=== PATIENT | female | born 1985 | race Caucasian/White ===

== ENCOUNTER 2019-04-13 14:50 | Inpatient (IN) ==
[2019-04-13 15:31] LABS: URINE SOURCE VOIDED
[2019-04-13 15:40] LABS: BILIRUBIN URINE NEGATIVE (NEGATIVE); BLOOD URINE TRACE (NEGATIVE); CLARITY SL. CLOUDY (CLEAR); COLOR YELLOW; GLUCOSE URINE NEGATIVE (NEGATIVE); KETONE URINE TRACE mg/dL (NEGATIVE); LEUKOCYTES URINE 1+ (NEGATIVE); NITRITE URINE NEGATIVE (NEGATIVE); PH URINE 6.5; PROTEIN URINE TRACE mg/dL (NEGATIVE); UROBILINOGEN URINE 1 mg/dL
[2019-04-13] MEDS ORDERED: BENADRYL IV ONE (15:43)
[2019-04-13] MEDS ORDERED: TYLENOL PO ONE (15:44)
[2019-04-13] MEDS: LR 1,000 ML IV SCH ×2 (16:18→19:55)
[2019-04-13 16:25] LABS: UR AMPHETAMINES QUAL PRESUMPTIVE POSITIVE (NONE DETECT); UR BARBITUATES QUAL NONE DETECTED (NONE DETECT); UR BENZODIAZEPIN QUAL NONE DETECTED (NONE DETECT); UR CANNABINOIDS QUAL NONE DETECTED (NONE DETECT); UR COCAINE QUAL NONE DETECTED (NONE DETECT); UR METHADONE QUAL NONE DETECTED (NONE DETECT); UR METHAMPHETAMINE QUAL PRESUMPTIVE POSITIVE (NONE DETECT); UR OPIATES QUAL NONE DETECTED (NONE DETECT); UR OXYCODONE QUAL NONE DETECTED (NONE DETECT); UR PCP QUAL NONE DETECTED (NONE DETECT); UR PROPOXYPHENE QUAL NONE DETECTED (NONE DETECT); UR TCA QUAL NONE DETECTED (NONE DETECT)
[2019-04-13 16:55] LABS: PROTEIN CREAT RATIO 0.3; UR CREAT RANDOM 165.4 mg/dL (11-20); UR PROT RANDOM 44.6 mg/dL
[2019-04-13 16:56] LABS: BASO# 0.01 X1000 (0.0-0.2); BASO% 0.1 % (0.0-0.8); EOS# 0.17 X1000 (0.0-0.7); EOS% 1.3 % (0.0-10.0); HEMOGLOBIN 9.6 g/dL (12.0-16.0); IMM GRAN# 0.05 X1000 (0.0-0.04); IMM GRAN% 0.4 % (0.0-0.5); LYMPH# 1.99 X1000 (1.2-3.4); LYMPH% 15.4 % (20.5-51.1); MCH 26.7 PG (27-31); MCV 83.6 FL (81-99); MONO# 0.92 X1000 (0.11-0.59); MONO% 7.1 % (1.7-9.3); NEUT# 9.82 X1000 (1.4-6.5); NEUT% 75.7 % (42.2-75.2); PLT 180 X1000 (130-400); RBC 3.59 XMIL (4.2-5.4); RDW 16.1 % (11.5-14.5); WBC 12.96 X1000 (4.8-10.8)
[2019-04-13 17:11] LABS: AGAP 12; ALBUMIN 2.6 g/dL (3.5-5.0); ALKALINE PHOSPHATASE 134 U/L (32-104); BUN 6 mg/dL (8-22); CALCIUM 7.4 mg/dL (8.8-10.2); CHLORIDE 103 mmol/L (98-107); COSMO 275; CREATININE 0.7 mg/dL (0.5-0.9); ESTIMATED GFR > 60; GLUCOSE 88 mg/dL (70-104); GOT 14 U/L (10-30); GPT 9 U/L (10-36); POTASSIUM 3.2 mmol/L (3.5-5.1); SODIUM 139 mmol/L (136-145); TCO2 24 mmol/L (25-35)
[2019-04-13] MEDS ORDERED: TRANDATE PO ONE (17:50)
[2019-04-13] MEDS ORDERED: LABETALOL IV ONE ×2 (19:07→19:21)
[2019-04-13] MEDS ORDERED: REGLAN PO ONE (19:30)
[2019-04-13] MEDS ORDERED: KEFZOL 1 GM/D5W 1 GM/50 ML IVPB IV PRN (19:30)
[2019-04-13] MEDS ORDERED: PEPCID PO ONE (19:30)
--- NOTE | 2019-04-13 19:39 | OB/GYN PROGRESS NOTE ---
Progress Note OB - . OB Progress Note: Vital Signs - 24 hr 04/13/19 15:10 Temperature 96.7 F L Pulse Rate 95 H Respiratory Rate 20 Blood Pressure 157/95 O2 Sat by Pulse Oximetry 98 Laboratory Results - last 24 hr 04/13/19 04/13/19 04/13/19 15:00 15:00 15:00 WBC RBC Hgb Hct MCV MCH MCHC RDW Std Deviation Plt Count MPV Immature Gran % (Auto) Neut % (Auto) Lymph % (Auto) [place] % (Auto) Eos % (Auto) Baso % (Auto) Immature Gran # (Auto) Neut # (Auto) Lymph # (Auto) [place] # (Auto) Eos # (Auto) Baso # (Auto) Sodium Potassium Chloride Carbon Dioxide Anion Gap BUN Creatinine Estimated GFR/1.73 m2 BUN/Creatinine Ratio Glucose Calculated Osmolality Uric Acid Calcium Total Bilirubin AST ALT Alkaline Phosphatase Total Protein Albumin Globulin Albumin/Globulin Ratio Urine Source VOIDED Urine Color YELLOW Urine Clarity SL. CLOUDY A Urine pH 6.5 Ur Specific [place] 1.010 Urine Protein TRACE A Urine Ketones TRACE Urine Blood TRACE Urine Nitrite NEGATIVE Urine Bilirubin NEGATIVE Urine Urobilinogen 1 Urine WBC 1+ A Ur Random Creatinine 165.4 H U Random Total Protein 44.6 Protein/Creatinin Ratio 0.3 Urine Glucose NEGATIVE Urine Opiates Screen NONE DETECTED Ur Oxycodone Screen NONE DETECTED Urine Methadone Screen NONE DETECTED U Propoxyphene Qual NONE DETECTED Ur Barbituates Screen NONE DETECTED Ur Tricyclics Screen NONE DETECTED Ur Phencyclidine Scrn NONE DETECTED Ur Amphetamines Screen PRESUMPTIVE POSITIVE A U Methamphetamines Scrn PRESUMPTIVE POSITIVE A U Benzodiazepines Scrn NONE DETECTED Urine Cocaine Screen NONE DETECTED U Cannabinoids Screen NONE DETECTED 04/13/19 04/13/19 04/13/19 16:30 16:30 16:30 WBC 12.96 H RBC 3.59 L Hgb 9.6 L Hct 30.0 L MCV 83.6 MCH 26.7 L MCHC 32.0 L RDW Std Deviation 16.1 H Plt Count 180 MPV 13.0 H Immature Gran % (Auto) 0.4 Neut % (Auto) 75.7 H Lymph % (Auto) 15.4 L [place] % (Auto) 7.1 Eos % (Auto) 1.3 Baso % (Auto) 0.1 Immature Gran # (Auto) 0.05 H Neut # (Auto) 9.82 H Lymph # (Auto) 1.99 [place] # (Auto) 0.92 H Eos # (Auto) 0.17 Baso # (Auto) 0.01 Sodium 139 Potassium 3.2 L Chloride 103 Carbon Dioxide 24 L Anion Gap 12 BUN 6 L Creatinine 0.7 Estimated GFR/1.73 m2 > 60 BUN/Creatinine Ratio 9 Glucose 88 Calculated Osmolality 275 Uric Acid 7.1 H Calcium 7.4 L Total Bilirubin 0.20 AST 14 ALT 9 L Alkaline Phosphatase 134 H Total Protein 5.0 L Albumin 2.6 L Globulin 2.0 Albumin/Globulin Ratio 1.0 Urine Source Urine Color Urine Clarity Urine pH Ur Specific [place] Urine Protein Urine Ketones Urine Blood Urine Nitrite Urine Bilirubin Urine Urobilinogen Urine WBC Ur Random Creatinine U Random Total Protein Protein/Creatinin Ratio Urine Glucose Urine Opiates Screen Ur Oxycodone Screen Urine Methadone Screen U Propoxyphene Qual Ur Barbituates Screen Ur Tricyclics Screen Ur Phencyclidine Scrn Ur Amphetamines Screen U Methamphetamines Scrn U Benzodiazepines Scrn Urine Cocaine Screen U Cannabinoids Screen Patient had improvement in her NORMAN pain and BP until about 40-50 minutes ago. She used the bathroom and since that time her BP have been 160s-190s. She has been given IV labetalol x 2, 20mg and 40mg. her NORMAN is worse. Discussed the R/B/A of a repeat including the risks of infection, bleeding, damage to anything in her abdomen, placenta accreta and possible hysterectomy. She confirms understanding and agrees to proceed. She also wants a tubal ligation. O. BP 167/89. FHM: 145, mod savannah, no decels [place]: None. A/P 33yo at 36/5 with worsening GHTN, likely Severe preeclampsia superimposed on GHTN. Will add MgSO4 for seizure prophylaxis at delivery if BP still high. Will repeat UDS as well.
[2019-04-13] MEDS ORDERED: BICITRA ONE (19:55)
[2019-04-13] MEDS ORDERED: ZOFRAN ONE (20:28)
[2019-04-13] MEDS ORDERED: PITOCIN ONE ×2 (20:28→21:00)
[2019-04-13] MEDS ORDERED: DURAMORPH ONE (20:28)
[2019-04-13 20:37] LABS: UR AMPHETAMINES QUAL PRESUMPTIVE POSITIVE (NONE DETECT); UR BARBITUATES QUAL NONE DETECTED (NONE DETECT); UR BENZODIAZEPIN QUAL NONE DETECTED (NONE DETECT); UR CANNABINOIDS QUAL NONE DETECTED (NONE DETECT); UR COCAINE QUAL NONE DETECTED (NONE DETECT); UR METHADONE QUAL NONE DETECTED (NONE DETECT); UR METHAMPHETAMINE QUAL NONE DETECTED (NONE DETECT); UR OPIATES QUAL NONE DETECTED (NONE DETECT); UR OXYCODONE QUAL NONE DETECTED (NONE DETECT); UR PCP QUAL NONE DETECTED (NONE DETECT); UR PROPOXYPHENE QUAL NONE DETECTED (NONE DETECT); UR TCA QUAL NONE DETECTED (NONE DETECT)
[2019-04-13] MEDS ORDERED: EPHEDRINE ONE (20:49)
[2019-04-13] MEDS ORDERED: DECADRON ONE (21:00)
[2019-04-13] MEDS ORDERED: BOOSTRIX VACCINE IM ONE (22:00)
[2019-04-13] MEDS ORDERED: ZOFRAN IV PRN ×2 (22:00)
[2019-04-13] MEDS ORDERED: DEMEROL IM PRN (22:00)
[2019-04-13] MEDS ORDERED: AMBIEN PO PRN (22:00)
[2019-04-13] MEDS ORDERED: NARCAN INJ PRN (22:00)
[2019-04-13] MEDS ORDERED: PITOCIN 20 UNITS/NS 20 UNITS/1,000 ML IV.SOLN IV ONE (22:00)
[2019-04-13] MEDS ORDERED: DULCOLAX PR PRN (22:00)
[2019-04-13] MEDS ORDERED: MYLICON PO PRN (22:00)
[2019-04-13] MEDS ORDERED: PHENERGAN IM PRN (22:00)
[2019-04-13] MEDS ORDERED: DEMEROL PO PRN ×2 (22:00)
[2019-04-13] MEDS ORDERED: ATARAX PO PRN (22:00)
[2019-04-13] MEDS ORDERED: PITOCIN IM PRN (22:00)
[2019-04-13] MEDS ORDERED: M-M-R II VACCINE SUBQ ONE (22:00)
[2019-04-13] MEDS ORDERED: BENADRYL IV PRN (22:00)
[2019-04-13] MEDS ORDERED: ZOFRAN ODT PO PRN (22:00)
[2019-04-13] MEDS ORDERED: HYDROXYZINE IM PRN (22:00)
[2019-04-13] MEDS ORDERED: MAGNESIUM SULFATE 4 GM/S.W.I. 4 GM/100 ML IVPB IV ONE (22:23)
[2019-04-13] MEDS ORDERED: MAGNESIUM SULFATE 40 GM/S.W.I. 40 GM/1,000 ML IV.SOLN IV SCH (22:30)
[2019-04-13] MEDS: PITOCIN 10 UNITS/NS 1,000 ML IV SCH (22:30)
[2019-04-13] MEDS ORDERED: BENADRYL ONE (22:37)
--- NOTE | 2019-04-14 00:18 | HISTORY AND PHYSICAL ---
CHIEF COMPLAINT: Headache and elevated pressures at home. The patient states she saw spots. HISTORY OF PRESENT ILLNESS: A 33-year-old, she is a -2-0-4. She is at 36 weeks and 5 days by 30 week ultrasound. She is here today, sent from the clinic, after having had elevated blood pressures at home and headache with vision changes. The patient states this morning she had elevated pressures and went to the clinic. She was told to take an extra dose of labetalol and come into Labor and Delivery for monitoring. She originally had a headache, which she says was at least a 7/10 pain and had seen some spots in her vision this morning. After arriving here, she was given some fluids and Tylenol. She now states her headache is much better. She does not see any spots or have any other vision changes, and her pain is 4/10. In addition, she reports that she has been taking Claritin-D for several weeks, not just Claritin, and was unaware that Claritin- D had Sudafed, which can elevate her blood pressure. The patient denies any illicit drug use. She has a history of preeclampsia in her previous pregnancies. She had 2 early deliveries because of worsening preeclampsia and history of 4 C-sections. PAST MEDICAL HISTORY: The patient denies, although she has a history of hypertension with each . She states that she has frequent medical visits in between pregnancies with normal blood pressure. PAST SURGICAL HISTORY: Notable for x4. She also had a laparoscopic cholecystectomy. OBSTETRICAL HISTORY: -2-0-4. 1. at term, 5 pounds 15 ounces male. 2. at term, 7 pounds 6 ounces male. 3. at 32 weeks, 6 pounds 8 ounces. 4. at 28 weeks, 5 pounds 5 ounces. 5. Current. GYNECOLOGIC HISTORY: Denies STDs. Last Pap in 2018. Denies a history of abnormal Paps. MEDICATIONS: She takes labetalol 100 b.i.d. along with Phenergan p.r.n. nausea, and Claritin-D. ALLERGIES: To Wellbutrin with tongue swelling and throat swelling. SOCIAL HISTORY: She smokes under half pack per day. Denies illicit drug use or alcohol use. Of note, she did have a UDS positive for meth and amphetamines today, although we did discuss the causes of false positives with that as well. REVIEW OF SYSTEMS: Positive for headache. She no longer has nausea, spots in her vision. Denies vision changes otherwise. Denies troubles breathing, right upper quadrant pain. PHYSICAL EXAM: VITAL SIGNS: Temperature of 96.7 degrees, pulse is 95, respirations 20, blood pressure 161/92 is her last blood pressure. Weight is 215. GENERAL: No apparent distress. Alert and orient x3. HEENT: Head is atraumatic, normocephalic. CARDIOVASCULAR: She is has a regular rate and rhythm. PULMONARY: Clear to auscultation bilaterally. ABDOMEN: Soft, gravid, obese. EXTREMITIES: Trace lower extremity edema. DTR 2+. No clonus. OTHER: heart rate tracings are 140 baseline and moderate variability. Positive accelerations. No decelerations. No contractions on TOCO. LABORATORY: She has a BUN of 6, creatinine 0.7, uric acid 7.1, AST of 14, ALT of 9. Urine shows trace protein. Hemoglobin of 9.6, platelet count of 180,000. ASSESSMENT AND PLAN: She is a 33-year-old, -2-0-4 at 36 and 5/7 weeks with elevated blood pressure. 1. The patient has gestational hypertension and history of preeclampsia x4. She has improvement of her headache and no longer has vision changes. We will adjust her dose of labetalol to bring her pressures down into the low mild range, and not have her take any more Claritin-D in this . We will likely keep the patient overnight to watch her pressures. If she has any severe features or headache is not resolved with Tylenol, then may do her early. She did have a course of steroids early in this . 2. x4. Plan for repeat in addition to a tubal, the consent for which she signed today. 3. Tobacco use. The patient is encouraged not to smoke. 4. Patient states she has chronic nausea and throws up a lot, and she claims to have lost 15 pounds in his . The weights from previous visits show weight of 189 pounds on 03/02, 208 pounds on 04/06, and weight today is 215, so that is not consistent with chronic vomiting. The patient may continue to use Phenergan for nausea, however, hyperemesis is not a concern. 5. Desire for permanent sterilization. This will be performed when she has her . 6. Preeclampsia versus severe gestational hypertension. We will order a spot urine protein/creatinine ratio and possibly a 24-hour urine. cc: DO ROMEO Vu
[2019-04-14] MEDS ORDERED: MAGNESIUM SULFATE 2 GM/S.W.I. 2 GM/50 ML IVPB IV ONE (01:21)
[2019-04-14] MEDS ORDERED: LR 500 ML IV SCH (01:30)
[2019-04-14] MEDS: TORADOL IV SCH ×3 (03:11→16:18)
[2019-04-14 04:33] LABS: BANDS 3 % (0-1); BASO# 0.02 X1000 (0.0-0.2); BASO% 0.1 % (0.0-0.8); EOS# 0.01 X1000 (0.0-0.7); EOS% 0.1 % (0.0-10.0); HEMATOCRIT 30.8 % (37.0-47.0); HEMOGLOBIN 9.7 g/dL (12.0-16.0); IMM GRAN# 0.07 X1000 (0.0-0.04); IMM GRAN% 0.4 % (0.0-0.5); LYMPH# 1.17 X1000 (1.2-3.4); LYMPH% 5.9 % (20.5-51.1); LYMPHS 5 % (21-51); MCH 26.2 PG (27-31); MCHC 31.5 g/dL (33-37); MCV 83.2 FL (81-99); MONO 1 % (1-9); MONO# 0.63 X1000 (0.11-0.59); MONO% 3.2 % (1.7-9.3); MPV 12.9 FL (7.4-10.4); NEUT# 17.82 X1000 (1.4-6.5); NEUT% 90.3 % (42.2-75.2); PLT 188 X1000 (130-400); RDW 15.8 % (11.5-14.5); SEGS 91 % (42-75); WBC 19.72 X1000 (4.8-10.8)
[2019-04-14 04:34] LABS: ANISOCYTOSIS 1+; HYPOCHROM 1+; MICROCYTOSIS 2+; TARGET CELLS 1+
[2019-04-14] MEDS ORDERED: MAGNESIUM SULFATE 1 GM/D5W 1 GM/100 ML IVPB IV ONE ×2 (05:09→11:15)
[2019-04-14] MEDS: LR 1,000 ML IV SCH (06:15)
--- NOTE | 2019-04-14 07:18 | OPERATIVE NOTE ---
PROCEDURE DATE: 04/13/2019 PREOPERATIVE DIAGNOSIS: 1. G5, P2-2-0-4 at 36 weeks and 5 days has severe gestational hypertension, suspected preeclampsia, history of preeclampsia, and hypertension in all 4 previous pregnancies with 2 being delivered for this reason. The patient also had positive UDS for meth and amphetamine. 2. Undesired fertility. POSTOPERATIVE DIAGNOSES: 1. G5, P2-2-0-4 at 36 weeks and 5 days has severe gestational hypertension, suspected preeclampsia, history of preeclampsia, and hypertension in all 4 previous pregnancies with 2 being delivered for this reason. The patient also had positive UDS for meth and amphetamine. 2. Undesired fertility. PROCEDURE: A repeat low transverse section with bilateral tubal ligation. SURGEON: Allen Betancourt DO [employer]ED [employer] SORTER: None. ANESTHESIA: Spinal. FINDINGS: The patient had dense scarring at the fascia layer and rectus and linea alba. Normal- looking uterus, tubes, and ovaries. Male . Cephalic presentation, and weight of 7 pounds 4 ounces. Apgars of 3, 5 and 7 at 1, 5 and 10 minutes respectively. COMPLICATIONS: Scarring. SPECIMEN: Bilateral tubes. ESTIMATED BLOOD LOSS: 600. URINE OUTPUT: 80 mL. FLUIDS: Lactated Ringer's per Anesthesia. DESCRIPTION OF PROCEDURE: The patient was taken to the operating room where the spinal anesthesia was found to be adequate. She was prepped and draped in the normal sterile fashion, placed in the supine position with leftward tilt. A Pfannenstiel incision was made over the previous scar, and followed down to the fascia. Fascia was nicked in the midline and Morales scissors were used to extend it laterally. The fascia was elevated, and was not attached to the rectus. A thin layer of connective tissue was overlying the rectus muscles. This was entered and dissected carefully with the Metzenbaum scissors. A portion superiorly was entered, and the omentum and uterus were visualized beneath. This was then dissected inferiorly toward the bladder. The rectus muscles were bluntly. The Nathan retractor was placed, and the bladder flap was created with Metzenbaum scissors. The incision was made in the uterus in the thin portion where the previous incisions had been made. The 's head was elevated through the incision, and the was delivered without incident. The was initially screaming on the mother's abdomen. the cord was stripped then clamped and cut. The infant's mouth was suctioned and the baby was then handed off to the waiting nursing team. The placenta was removed. The uterus was cleared of all clots and debris. Hysterotomy was closed with 0 Vicryl in a running locked fashion. An imbrication layer was placed over it. A tubal was then performed on the right side in the modified Reubens technique. The segment of tube removed about 4 cm. The same was performed on the left side. The uterus was then replaced, and retractor removed. Hysterotomy was seen to be hemostatic. The rectus was reapproximated with 3-0 chromic. The fascia was reapproximated with PDS. Subcutaneous layer was reapproximated with 3-0 Monocryl, and skin was reapproximated with 4- 0 Biosin with Dermabond placed over it. The patient tolerated the procedure well. All lap, sponge, and needle counts were correct x2. She was taken to recovery room in stable condition. Magnesium was started at the end of the procedure. cc: DO ROMEO Vu
[2019-04-14] MEDS: PERCOCET-5 PO PRN (09:25)
[2019-04-14] MEDS: MYLICON PO SCH ×4 (09:25→21:16)
--- NOTE | 2019-04-14 11:31 | OB/GYN PROGRESS NOTE ---
Progress Note OB - . OB Progress Note: Vital Signs - 24 hr 04/13/19 15:10 04/13/19 19:02 04/13/19 19:07 Temperature 96.7 F L 97.6 F Pulse Rate 95 H 86 82 Respiratory Rate 20 20 20 Blood Pressure 157/95 185/103 178/103 Blood Pressure [Left Arm] O2 Sat by Pulse Oximetry 98 99 98 04/13/19 19:18 04/13/19 19:29 04/13/19 19:33 Temperature Pulse Rate 77 Respiratory Rate 20 Blood Pressure 195/104 175/110 167/89 Blood Pressure [Left Arm] O2 Sat by Pulse Oximetry 99 04/13/19 19:37 04/13/19 19:42 04/13/19 20:00 Temperature Pulse Rate Respiratory Rate Blood Pressure 171/87 156/79 162/98 Blood Pressure [Left Arm] O2 Sat by Pulse Oximetry 04/13/19 20:02 04/13/19 20:06 04/13/19 20:12 Temperature Pulse Rate Respiratory Rate Blood Pressure 177/108 186/107 187/94 Blood Pressure [Left Arm] O2 Sat by Pulse Oximetry 04/13/19 21:50 04/13/19 22:00 04/13/19 22:10 Temperature 97.1 F L Pulse Rate 60 58 L 57 L Respiratory Rate 20 20 20 Blood Pressure 140/74 Blood Pressure [Left Arm] 140/74 134/84 139/69 O2 Sat by Pulse Oximetry 97 98 99 04/13/19 22:20 04/13/19 22:30 04/13/19 22:40 Temperature Pulse Rate 57 L 77 62 Respiratory Rate 18 18 18 Blood Pressure Blood Pressure [Left Arm] 159/80 149/76 131/99 O2 Sat by Pulse Oximetry 100 95 95 04/13/19 22:50 04/13/19 23:00 04/13/19 23:10 Temperature Pulse Rate 53 L 66 65 Respiratory Rate 18 20 18 Blood Pressure 152/77 149/80 156/74 Blood Pressure [Left Arm] 152/77 O2 Sat by Pulse Oximetry 99 98 100 04/13/19 23:30 04/14/19 00:50 04/14/19 02:18 Temperature Pulse Rate 61 75 74 Respiratory Rate 18 18 18 Blood Pressure 140/77 138/87 146/87 Blood Pressure [Left Arm] O2 Sat by Pulse Oximetry 98 96 95 04/14/19 03:18 04/14/19 04:18 04/14/19 05:18 Temperature Pulse Rate 69 68 63 Respiratory Rate 16 18 18 Blood Pressure 140/87 141/82 137/84 Blood Pressure [Left Arm] O2 Sat by Pulse Oximetry 94 L 97 96 04/14/19 07:00 04/14/19 08:00 04/14/19 09:00 Temperature 96.9 F L 97.0 F L Pulse Rate 63 67 72 Respiratory Rate 16 16 18 Blood Pressure 139/83 Blood Pressure [Left Arm] O2 Sat by Pulse Oximetry 100 96 97 04/14/19 09:55 Temperature Pulse Rate 66 Respiratory Rate 18 Blood Pressure 134/77 Blood Pressure [Left Arm] O2 Sat by Pulse Oximetry 96 Laboratory Results - last 24 hr 04/13/19 04/13/19 04/13/19 15:00 15:00 15:00 WBC RBC Hgb Hct MCV MCH MCHC RDW Std Deviation Plt Count MPV Immature Gran % (Auto) Neut % (Auto) Lymph % (Auto) [place] % (Auto) Eos % (Auto) Baso % (Auto) Immature Gran # (Auto) Neut # (Auto) Lymph # (Auto) [place] # (Auto) Eos # (Auto) Baso # (Auto) Segmented Neutrophils Band Neutrophils Lymphocytes Monocytes Hypochromia Anisocytosis Microcytosis Target Cells Sodium Potassium Chloride Carbon Dioxide Anion Gap BUN Creatinine Estimated GFR/1.73 m2 BUN/Creatinine Ratio Glucose Calculated Osmolality Uric Acid Calcium Magnesium Total Bilirubin AST ALT Alkaline Phosphatase Total Protein Albumin Globulin Albumin/Globulin Ratio Urine Source VOIDED Urine Color YELLOW Urine Clarity SL. CLOUDY A Urine pH 6.5 Ur Specific [place] 1.010 Urine Protein TRACE A Urine Ketones TRACE Urine Blood TRACE Urine Nitrite NEGATIVE Urine Bilirubin NEGATIVE Urine Urobilinogen 1 Urine WBC 1+ A Ur Random Creatinine 165.4 H U Random Total Protein 44.6 Protein/Creatinin Ratio 0.3 Urine Glucose NEGATIVE Urine Opiates Screen NONE DETECTED Ur Oxycodone Screen NONE DETECTED Urine Methadone Screen NONE DETECTED U Propoxyphene Qual NONE DETECTED Ur Barbituates Screen NONE DETECTED Ur Tricyclics Screen NONE DETECTED Ur Phencyclidine Scrn NONE DETECTED Ur Amphetamines Screen PRESUMPTIVE POSITIVE A U Methamphetamines Scrn PRESUMPTIVE POSITIVE A U Benzodiazepines Scrn NONE DETECTED Urine Cocaine Screen NONE DETECTED U Cannabinoids Screen NONE DETECTED 04/13/19 04/13/19 04/13/19 16:30 16:30 16:30 WBC 12.96 H RBC 3.59 L Hgb 9.6 L Hct 30.0 L MCV 83.6 MCH 26.7 L MCHC 32.0 L RDW Std Deviation 16.1 H Plt Count 180 MPV 13.0 H Immature Gran % (Auto) 0.4 Neut % (Auto) 75.7 H Lymph % (Auto) 15.4 L [place] % (Auto) 7.1 Eos % (Auto) 1.3 Baso % (Auto) 0.1 Immature Gran # (Auto) 0.05 H Neut # (Auto) 9.82 H Lymph # (Auto) 1.99 [place] # (Auto) 0.92 H Eos # (Auto) 0.17 Baso # (Auto) 0.01 Segmented Neutrophils Band Neutrophils Lymphocytes Monocytes Hypochromia Anisocytosis Microcytosis Target Cells Sodium 139 Potassium 3.2 L Chloride 103 Carbon Dioxide 24 L Anion Gap 12 BUN 6 L Creatinine 0.7 Estimated GFR/1.73 m2 > 60 BUN/Creatinine Ratio 9 Glucose 88 Calculated Osmolality 275 Uric Acid 7.1 H Calcium 7.4 L Magnesium Total Bilirubin 0.20 AST 14 ALT 9 L Alkaline Phosphatase 134 H Total Protein 5.0 L Albumin 2.6 L Globulin 2.0 Albumin/Globulin Ratio 1.0 Urine Source Urine Color Urine Clarity Urine pH Ur Specific [place] Urine Protein Urine Ketones Urine Blood Urine Nitrite Urine Bilirubin Urine Urobilinogen Urine WBC Ur Random Creatinine U Random Total Protein Protein/Creatinin Ratio Urine Glucose Urine Opiates Screen Ur Oxycodone Screen Urine Methadone Screen U Propoxyphene Qual Ur Barbituates Screen Ur Tricyclics Screen Ur Phencyclidine Scrn Ur Amphetamines Screen U Methamphetamines Scrn U Benzodiazepines Scrn Urine Cocaine Screen U Cannabinoids Screen 04/13/19 04/14/19 04/14/19 20:00 00:27 03:38 WBC 19.72 H RBC 3.70 L Hgb 9.7 L Hct 30.8 L MCV 83.2 MCH 26.2 L MCHC 31.5 L RDW Std Deviation 15.8 H Plt Count 188 MPV 12.9 H Immature Gran % (Auto) 0.4 Neut % (Auto) 90.3 H Lymph % (Auto) 5.9 L [place] % (Auto) 3.2 Eos % (Auto) 0.1 Baso % (Auto) 0.1 Immature Gran # (Auto) 0.07 H Neut # (Auto) 17.82 H Lymph # (Auto) 1.17 L [place] # (Auto) 0.63 H Eos # (Auto) 0.01 Baso # (Auto) 0.02 Segmented Neutrophils 91 H Band Neutrophils 3 H Lymphocytes 5 L Monocytes 1 Hypochromia 1+ Anisocytosis 1+ Microcytosis 2+ Target Cells 1+ Sodium Potassium Chloride Carbon Dioxide Anion Gap BUN Creatinine Estimated GFR/1.73 m2 BUN/Creatinine Ratio Glucose Calculated Osmolality Uric Acid Calcium Magnesium 3.7 H Total Bilirubin AST ALT Alkaline Phosphatase Total Protein Albumin Globulin Albumin/Globulin Ratio Urine Source Urine Color Urine Clarity Urine pH Ur Specific [place] Urine Protein Urine Ketones Urine Blood Urine Nitrite Urine Bilirubin Urine Urobilinogen Urine WBC Ur Random Creatinine U Random Total Protein Protein/Creatinin Ratio Urine Glucose Urine Opiates Screen NONE DETECTED Ur Oxycodone Screen NONE DETECTED Urine Methadone Screen NONE DETECTED U Propoxyphene Qual NONE DETECTED Ur Barbituates Screen NONE DETECTED Ur Tricyclics Screen NONE DETECTED Ur Phencyclidine Scrn NONE DETECTED Ur Amphetamines Screen PRESUMPTIVE POSITIVE A U Methamphetamines Scrn NONE DETECTED U Benzodiazepines Scrn NONE DETECTED Urine Cocaine Screen NONE DETECTED U Cannabinoids Screen NONE DETECTED 04/14/19 04/14/19 03:38 10:40 WBC RBC Hgb Hct MCV MCH MCHC RDW Std Deviation Plt Count MPV Immature Gran % (Auto) Neut % (Auto) Lymph % (Auto) [place] % (Auto) Eos % (Auto) Baso % (Auto) Immature Gran # (Auto) Neut # (Auto) Lymph # (Auto) [place] # (Auto) Eos # (Auto) Baso # (Auto) Segmented Neutrophils Band Neutrophils Lymphocytes Monocytes Hypochromia Anisocytosis Microcytosis Target Cells Sodium Potassium Chloride Carbon Dioxide Anion Gap BUN Creatinine Estimated GFR/1.73 m2 BUN/Creatinine Ratio Glucose Calculated Osmolality Uric Acid Calcium Magnesium 4.2 H 5.3 H Total Bilirubin AST ALT Alkaline Phosphatase Total Protein Albumin Globulin Albumin/Globulin Ratio Urine Source Urine Color Urine Clarity Urine pH Ur Specific [place] Urine Protein Urine Ketones Urine Blood Urine Nitrite Urine Bilirubin Urine Urobilinogen Urine WBC Ur Random Creatinine U Random Total Protein Protein/Creatinin Ratio Urine Glucose Urine Opiates Screen Ur Oxycodone Screen Urine Methadone Screen U Propoxyphene Qual Ur Barbituates Screen Ur Tricyclics Screen Ur Phencyclidine Scrn Ur Amphetamines Screen U Methamphetamines Scrn U Benzodiazepines Scrn Urine Cocaine Screen U Cannabinoids Screen S. Patient resting in bed, SCD on , Trevino in place. She feels fine. Her pain is well controlled. Denies NORMAN, Vision changes, SOB/CP. She talked with [facility] and was told baby is doing well, has required no O2 and is moved to a transitional area. O. Chest: CTAB Heart: RRR Abdomen soft, uterus at the umbilicus, Incision CDI. Ext: no edema, DTR 2+ A/P: Patient doing well, continue magnesium for 24 hours. UO good.
[2019-04-14] MEDS: PITOCIN 10 UNITS/NS 1,000 ML IV SCH (16:21)
[2019-04-14] MEDS ORDERED: ADALAT CC PO ONE (21:00)
[2019-04-14] MEDS: PERICOLACE PO SCH (21:16)
[2019-04-14] MEDS ORDERED: LUBRIDERM LOTION TOP PRN (21:36)
[2019-04-14] MEDS ORDERED: BLISTEX MEDICATED BERRY LIP BALM TOP PRN (22:15)
[2019-04-15] MEDS: MOTRIN PO PRN ×3 (00:03→16:17)
[2019-04-15] MEDS: PERCOCET-5 PO PRN ×3 (00:04→16:17)
[2019-04-15] MEDS: LR 1,000 ML IV SCH ×4 (00:36→22:20)
[2019-04-15] MEDS ORDERED: PNEUMOVAX 23 IM ONE (07:15)
--- NOTE | 2019-04-15 08:19 | OB/GYN PROGRESS NOTE ---
Progress Note OB - . Patient Problems: Current Active Problems Problem Status Onset Limited care Acute Pre-eclampsia, severe, antepartum Acute Tobacco use affecting in third trimester, antepartum Acute OB Progress Note: Vital Signs - 24 hr 04/14/19 09:00 04/14/19 09:55 04/14/19 11:00 Temperature 97.0 F L Pulse Rate 72 66 69 Respiratory Rate 18 18 16 Blood Pressure 134/77 117/68 O2 Sat by Pulse Oximetry 97 96 95 04/14/19 12:00 04/14/19 13:00 04/14/19 14:00 Temperature 96.6 F L Pulse Rate 62 66 63 Respiratory Rate 18 18 16 Blood Pressure 122/76 106/69 127/72 O2 Sat by Pulse Oximetry 95 96 97 04/14/19 15:01 04/14/19 16:00 04/14/19 17:00 Temperature 96.5 F L Pulse Rate 64 62 64 Respiratory Rate 18 20 16 Blood Pressure 132/76 133/76 O2 Sat by Pulse Oximetry 98 98 97 04/14/19 18:00 04/14/19 18:47 04/14/19 19:00 Temperature 96.5 F L 96.5 F L 97.6 F Pulse Rate 68 68 67 Respiratory Rate 18 20 Blood Pressure 142/78 142/78 129/76 O2 Sat by Pulse Oximetry 98 97 97 04/14/19 20:00 04/14/19 21:00 04/14/19 22:03 Temperature Pulse Rate 68 74 62 Respiratory Rate 20 20 20 Blood Pressure 133/71 135/79 156/92 O2 Sat by Pulse Oximetry 97 98 94 L 04/15/19 00:38 Temperature Pulse Rate 67 Respiratory Rate 18 Blood Pressure 146/87 O2 Sat by Pulse Oximetry 98 Laboratory Results - last 24 hr 04/14/19 04/14/19 10:40 17:00 Magnesium 5.3 H 6.2 H 33 yo POD#2 s/p Rpt C/S with BTL at 36w5d 2/2 PreE with severe features with limited PNC, illicit drug use, tobacco use. Patient seen and examined. Pain is controlled. She is tolerating a regular diet. She denies nausea/vomiting, headaches, vision changes, CP, SOP, RUQ pain. She is ambulating without difficulty. She is voiding without difficulty and has had a bowel movement. She notes minimal lochia. Baby was transferred to NICU in [place]. She is interested in breast pumping. She had a BTL for PP contraception. S/p Magnesium x 24 hrs for seizure ppx. Off last night around 2200. Given one dose of Procardia last night. BP 160/80 this AM. Physical Exam-General - PHYSICAL EXAM-ADULT Initial Vital Signs Reviewed: Yes - CONSTITUTIONAL General Appearance: appears well, alert, no apparent distress - EYES Eyes: PERRL/EOMI - HEAD, EARS, NOSE, MOUTH & THROAT HENMT: normocephalic/atraumatic - RESPIRATORY Respiratory: chest non-tender, lungs clear, normal breath sounds - CARDIOVASCULAR Cardiovascular: normal peripheral pulses, regular rate, rhythm - GASTROINTESTINAL (ABDOMEN) Abdominal Exam: normal bowel sounds, soft, other (Non-distended, ATTP, fundus firm/below umbilicus, Pfannensteil incision C/D/I with dermabond) - MUSCULOSKELETAL Extremity: normal range of motion, pedal edema (mild, non-pitting) DTR: knee (R): 2+, knee (L): 2+ - SKIN Integumentary: normal color - PSYCHIATRIC Psych/Mental Status: normal mood/affect Assessment/Plan - Assessment/Plan Assessment: 33 yo POD#2 s/p Rpt LTCS with BTL at 36w5d 2/2 PreE with severe features with limited PNC, tobacco abuse, positive drug screen, anemia 1. HD stable, afebrile, pain controlled. 2. BP elevated this AM, s/p Mag x 24 hrs off at 2200 last night. Given one dose of Procardia 30mg XL last night. Will monitor BP today and add Procardia if necessary 3. Encouraged ambulation, IS use, breast pumping 4. Baby in NICU at [place] 5. Hgb 9.7, will start Iron BID, miralax daily
[2019-04-15] MEDS ORDERED: MIRALAX PO SCH (09:00)
[2019-04-15] MEDS: MYLICON PO SCH ×4 (09:23→21:08)
[2019-04-15] MEDS: FERROUS SULFATE PO SCH ×2 (09:23→21:08)
[2019-04-15] MEDS ORDERED: ADALAT CC PO SCH (09:30)
--- NOTE | 2019-04-15 14:53 | OB/GYN PROGRESS NOTE ---
Progress Note OB - . Patient Problems: Current Active Problems Problem Status Onset Limited care Acute Pre-eclampsia, severe, antepartum Acute Tobacco use affecting in third trimester, antepartum Acute OB Progress Note: Vital Signs - 24 hr 04/14/19 15:01 04/14/19 16:00 04/14/19 17:00 Temperature 96.5 F L Pulse Rate 64 62 64 Respiratory Rate 18 20 16 Blood Pressure 132/76 133/76 O2 Sat by Pulse Oximetry 98 98 97 04/14/19 18:00 04/14/19 18:47 04/14/19 19:00 Temperature 96.5 F L 96.5 F L 97.6 F Pulse Rate 68 68 67 Respiratory Rate 18 20 Blood Pressure 142/78 142/78 129/76 O2 Sat by Pulse Oximetry 98 97 97 04/14/19 20:00 04/14/19 21:00 04/14/19 22:03 Temperature Pulse Rate 68 74 62 Respiratory Rate 20 20 20 Blood Pressure 133/71 135/79 156/92 O2 Sat by Pulse Oximetry 97 98 94 L 04/15/19 00:38 04/15/19 08:00 04/15/19 09:15 Temperature 96.1 F L Pulse Rate 67 63 Respiratory Rate 18 20 Blood Pressure 146/87 152/77 173/87 O2 Sat by Pulse Oximetry 98 100 04/15/19 09:16 04/15/19 09:17 04/15/19 11:00 Temperature Pulse Rate Respiratory Rate Blood Pressure 173/89 166/88 148/76 O2 Sat by Pulse Oximetry 04/15/19 12:25 04/15/19 14:45 Temperature 96.5 F L Pulse Rate 75 Respiratory Rate 20 Blood Pressure 163/92 140/69 O2 Sat by Pulse Oximetry 99 Laboratory Results - last 24 hr 04/14/19 17:00 Magnesium 6.2 H Patient called out requesting to be discharged or to leave AMA. BP currently elevated 160/80s. Procardia 30mg XL daily was started this AM. Discussed need for BP control prior to discharge. Discussed risks of leaving AMA with BP in severe range, risk of stroke, seizure, brain damage, and . She voiced understanding. She denies any signs/symptoms of PreE. She states she has to leave the hospital to smoke and it was recommended to her that she not leave due to aforementioned risks. She will sign a release to leave the floor. All questions answered. Jesika William, DO
[2019-04-15] MEDS: PERICOLACE PO SCH (22:20)
[2019-04-16] MEDS: MOTRIN PO PRN (00:13)
[2019-04-16] MEDS ORDERED: ADALAT CC PO ONE (00:23)
[2019-04-16 08:41] VITALS: BP 159/90
[2019-04-16] MEDS: FERROUS SULFATE PO SCH (08:58)
[2019-04-16] MEDS: MYLICON PO SCH (08:59)
[2019-04-16] MEDS ORDERED: ADALAT CC PO SCH (09:00)
--- NOTE | 2019-04-16 15:15 | DISCHARGE SUMMARY ---
ADMISSION DATE: 04/13/2019 DISCHARGE DATE: 04/16/2019 ADMITTING DIAGNOSES: 1. Multiparity. 2. Prior section x4. 3. Current at 36 and 5 days based on a 30 week ultrasound. 4. Preeclampsia with severe features. 5. Undesired fertility. DISCHARGE DIAGNOSES: 1. Multiparity. 2. Prior section x4. 3. Current at 36 and 5 days based on a 30 week ultrasound. 4. Preeclampsia with severe features. 5. Undesired fertility. 6. Liveborn infant delivered via repeat section. 7. Tubal ligation. BRIEF HISTORY AND HOSPITAL COURSE: The patient is a 33-year-old, 5, para 4, at 36 weeks and 5 days gestation by a 30 week ultrasound, who presented to labor and delivery with headache and elevated blood pressures. She was diagnosed with preeclampsia with severe features and given her gestational age and hypertension, a repeat section with bilateral tubal ligation was performed. Please see separate operative note. Her postoperative course was uncomplicated. She was maintained on magnesium neuroprophylaxis for 24 hours and started on nifedipine for her blood pressures. On postoperative day #1, continued on magnesium. Postoperative day #2, she begins ambulating, voiding, and tolerating a regular diet. Her vital signs were stable, afebrile. Continues on nifedipine for blood pressure management. Postoperative hemoglobin 9.7. On postoperative day #3, ambulating, voiding, tolerating a regular diet. Blood pressure well managed. She was discharged home in stable condition. Her baby was transferred to an outside hospital and she is anxious to follow up at that hospital for her baby. She was given a prescription for her nifedipine as well as Motrin and Percocet. Her discharge exam is clean, dry incision. No other problems. She is asked to follow up with her doctor in 1 week for blood pressure check and incision check. She is asked to call into the hospital or her doctor for pain, fever greater than 100.4, abnormal uterine bleeding. Maintain pelvic rest and regular diet. cc: Allen Betancoutr DO
== END 2019-04-16 11:35 | disposition home or self-care (01) | DRG 785 ==
LOC: P.OPLD 14:50 → P.LD 14:54
PROVIDERS: ADMIT Obstetrics & Gynecology; ATTEND Obstetrics & Gynecology